=== PATIENT | male | born 1990 | race Caucasian/White ===

== ENCOUNTER 2017-06-04 10:43 | Emergency (ER) | payer SELFPAY ==
[~2017-06-04] VITALS: Ht 170.2 cm; Wt 93.0 kg
[~2017-06-04 10:43] MED LIST: IBUPROFEN200 M1 OR; NYQUI1 OR
[2017-06-04] MEDS ORDERED: ALPRAZOLAM0.25 MG PO (10:50)
[2017-06-04] MEDS ORDERED: SUBOXONE1 MI2 PO (10:52)
[2017-06-04 11:31] LABS: INFLUENZA A NONE DETECTED (NONE DETECT); INFLUENZA B NONE DETECTED (NONE DETECT)
[2017-06-04] MEDS ORDERED: AMOXICILLIN500 M2 PO (12:13)
[2017-06-04 12:28] VITALS: BP 120/68
== END 2017-06-04 12:30 | disposition home or self-care (01) | DRG 153 ==
LOC: ED 10:43
PROVIDERS: Emergency Medicine
DX: J02.0 Streptococcal pharyngitis (principal); M79.1 Myalgia; R05 Cough; R50.9 Fever, unspecified; R21 Rash and other nonspecific skin eruption